=== PATIENT | male | born 1990 | race Caucasian/White ===

== ENCOUNTER 2019-03-12 03:00 | Emergency (ER) | payer OTHER ==
[~2019-03-12] VITALS: Ht 182.9 cm; Wt 134.3 kg
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
[2019-03-12] MEDS ORDERED: ORPH100T PO (04:36)
[2019-03-12] MEDS ORDERED: TRAM50TA PO (04:36)
[2019-03-12] MEDS ORDERED: DICL50TA4 PO (04:36)
[2019-03-12] MEDS ORDERED: HYDROcodone/APAP 7.5/325MG 1 TAB TABLET ONE (04:45)
[2019-03-12 04:48] VITALS: BP 114/63
[2019-03-12] MEDS ORDERED: HYDROcodone/APAP 7.5/325MG 1 TAB TABLET PO ONE (05:00)
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
== END 2019-03-12 04:52 | disposition home or self-care (01) ==
LOC: ER 03:00
DX: S70.02XA Contusion of left hip, initial encounter (principal); S80.01XA Contusion of right knee, initial encounter; V43.52XA Car driver injured in collision with other type car in traffic accident, initial encounter; Y93.89 Activity, other specified; Y92.410 Unspecified street and highway as the place of occurrence of the external cause; Y99.8 Other external cause status
CPT/HCPCS: 73502; 73562; 99284

== ENCOUNTER → 2019-03-14 | Outpatient (CLI) | payer OTHER ==
[2019-03-12 04:48] VITALS: BP 114/63
[~2019-03-14] MED LIST: DICL50TA4 PO; ORPH100T PO; TRAM50TA PO
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
== END | disposition home or self-care (01) ==
LOC: RAD 11:08
PROVIDERS: ATTEND Physician Assistant Medical
DX: R07.81 Pleurodynia (principal); V89.2XXA Person injured in unspecified motor-vehicle accident, traffic, initial encounter
CPT/HCPCS: 71046; 71100

== ENCOUNTER 2021-09-03 21:59 | Emergency (ER) | payer OTHER ==
[~2021-09-03] VITALS: Ht 182.9 cm; Wt 116.4 kg
[2021-09-03 22:00] VITALS: BP 120/72
[2021-09-03] MEDS ORDERED: IBUPROFEN 400 MG TABLET. PO ONE (22:30)
[2021-09-03] MEDS ORDERED: IBUP-1007 PO (22:32)
[2021-09-03] MEDS ORDERED: CEPH500C PO (22:32)
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
--- NOTE | 2021-09-03 22:36 | RAD ---
Study: XR FINGER(S)_LEFT 2+VIEWS_RT Indication: Finger injury. Comparison: None. Findings/ Impression: Minimally comminuted, nondisplaced tuft fracture of the long finger. No fracture seen elsewhere. Alig nment is anatomic. No retained radiodense foreign body. Electronically signed by: DILLAN GONZALEZ MD (09/03/2021 10:33 PM) [facility]
[2021-09-03] MEDS ORDERED: DIPHTH,PERTUSS(ACELL),TET TOX 0.5 ML DISP.SYRIN. VAX IM ONE (23:00)
== END 2021-09-03 23:00 | disposition home or self-care (01) ==
LOC: ER 21:59
DX: S62.663B Nondisplaced fracture of distal phalanx of left middle finger, initial encounter for open fracture (principal); J45.909 Unspecified asthma, uncomplicated; F17.200 Nicotine dependence, unspecified, uncomplicated; W31.89XA Contact with other specified machinery, initial encounter; Y93.89 Activity, other specified; Y92.89 Other specified places as the place of occurrence of the external cause; Y99.8 Other external cause status
CPT/HCPCS: 29130; 73140; 90471; 90715; 99283